=== PATIENT | male | born 1955 | race Caucasian/White ===

== ENCOUNTER 2019-06-22 16:39 | Inpatient (IN) ==
[2019-06-22] MEDS ORDERED: MORPHINE IV PRN ×2 (18:24→18:42)
[2019-06-22] MEDS ORDERED: VANCOMYCIN IV PER PHARMACY MISC SCH (18:30)
[2019-06-22] MEDS: 1/2 NS 1,000 ML IV SCH (18:48)
[2019-06-22] MEDS: ZOSYN 3.375 GM in NS 50 ML IV SCH (18:48)
[2019-06-22] MEDS ORDERED: D50W SYRINGE IV PRN (19:00)
[2019-06-22 19:21] LABS: BASO# 0.04 X1000 (0.0-0.2); BASO% 0.6 % (0.0-0.8); EOS# 0.09 X1000 (0.0-0.7); EOS% 1.3 % (0.0-10.0); HEMATOCRIT 43.9 % (42.0-52.0); HEMOGLOBIN 14.7 g/dL (14.0-18.0); IMM GRAN# 0.04 X1000 (0.0-0.04); IMM GRAN% 0.6 % (0.0-0.5); LYMPH# 1.99 X1000 (1.2-3.4); LYMPH% 28.7 % (20.5-51.1); MCHC 33.5 g/dL (33-37); MCV 86.6 FL (81-99); MONO# 0.61 X1000 (0.11-0.59); MONO% 8.8 % (1.7-9.3); NEUT# 4.17 X1000 (1.4-6.5); PLT 245 X1000 (130-400); RBC 5.07 XMIL (4.7-6.1); RDW 13.3 % (11.5-14.5); WBC 6.94 X1000 (4.8-10.8)
[2019-06-22 19:35] LABS: AGAP 15; BUN 19 mg/dL (8-22); CALCIUM 9.2 mg/dL (8.8-10.2); CHLORIDE 95 mmol/L (98-107); COSMO 279; CREATININE 0.9 mg/dL (0.7-1.2); ESTIMATED GFR > 60; GLUCOSE 279 mg/dL (70-104); POTASSIUM 4.7 mmol/L (3.5-5.1); SODIUM 133 mmol/L (136-145); TCO2 23 mmol/L (25-35)
[2019-06-22 19:36] LABS: HEMOGLOBIN A1C 10.8 % (4.8-6.0)
--- NOTE | 2019-06-22 19:53 | HISTORY AND PHYSICAL ---
CHIEF COMPLAINT: Right thumb swollen and pain. HISTORY OF PRESENT ILLNESS: He is a 63-year-old white male, type 2 diabetes. He had a splinter while lifting a cabinet 2 weeks ago. Apparently the patient removed the splinter after digging it out at the tip of the right thumb. Subsequently he was seen in the urgent care and sent home on antibiotics, and not getting better. He was seen in the emergency room yesterday and tried to open up. Under digital block they did incision over the tip of the right thumb. The patient was sent home on Percocet and Bactrim. The patient was given tetanus shot. He came to my office and he was not any better, and the whole right thumb was swollen, mostly at the tip at the distal phalanx area. It is completely pus-like, not able to touch. The patient is in a lot of pain. Basically admitted to the hospital with felon of right thumb. Surgical consult was obtained. I did review the x-rays that were done yesterday in the ER. X-ray of the right finger showed arthritis, no foreign body, no fracture. As a result, a hospital admission was warranted. I spoke to Dr. Taveras. He was started on antibiotics. PAST MEDICAL HISTORY: Type 2 diabetes, metabolic syndrome, hyperlipidemia, osteoarthritis, sleep apnea. PAST SURGICAL HISTORY: Right knee arthroplasty 05/2016. Lipoma excision, right abdomen. MEDICATIONS: Bactrim, Percocet, Lipitor 40 mg daily, metformin 500 p.o. b.i.d. ALLERGIES: Not known. 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 Living in [place]. No smoking. No drugs. No alcohol abuse. Tetanus was given 06/2018. Pneumococcal in 2013. Last physical exam 11/2018. FAMILY HISTORY: Father of lung cancer at 65. Mother is in good health. REVIEW OF SYSTEMS: HEENT: No headache, no vision problem. No earache. No sore throat. Neck: No goiter. No lymphadenopathy. No bruit. Cardiopulmonary: No chest pain, shortness of breath, PND or orthopnea. Gastrointestinal: No nausea, vomiting or abdominal pain. Genitourinary: No history of hesitancy or frequency. Right thumb is diffusely swollen, pus-like with pain. The redness is going towards the hand. No obvious neurological deficits. LABORATORY DATA: Investigations pending. ASSESSMENT AND PLAN: 1. A 63-year-old white male admitted to the hospital with right thumb felon after splinter. Plan of care: Tetanus is up to date. Intravenous Zosyn, vancomycin, morphine for pain, intravenous fluids. Check the labs. 2. Type 2 diabetes. Sliding scale with insulin coverage. 3. Surgical consult with Dr. Taveras. Follow up. cc: Anthony Preston MD
--- NOTE | 2019-06-22 20:18 | Diag Imaging Result Doc PS360 ---
EXAM: FINGER(S)-RIGHT INDICATION: surgery in am TECHNIQUE: 3 views COMPARISON: 06/21/2019 FINDINGS: Right thumb degenerative arthropathy is again noted. There is no discrete fracture, dislocation, or significant intrinsic osseous lesion, otherwise. There is persistent soft tissue edema around the tip of the thumb and there now appears to be a small laceration at the tip of the thumb at the palmar aspect. No embedded radiopaque foreign body is identified on this study. IMPRESSION: Stable soft tissue edema now with suggestion of soft tissue laceration at the palmar aspect of the thumb. Electronically signed by Charlie Peterson 06/22/2019 8:16 PM
--- NOTE | 2019-06-22 20:19 | Diag Imaging Result Doc PS360 ---
EXAM: CHEST-2 VIEWS INDICATION: surgery in am TECHNIQUE: 2 views COMPARISON: 08/03/2013 FINDINGS: The lungs are grossly clear. There is no discrete pleural fluid collection or pneumothorax. The cardiomediastinal silhouette and central vasculature are grossly unremarkable. IMPRESSION: No evidence of acute pathology by plain radiograph. Electronically signed by Charlie Peterson 06/22/2019 8:17 PM
[2019-06-22] MEDS ORDERED: VANCOMYCIN 2,000 MG in NS 500 ML IV ONE (21:00)
[2019-06-22] MEDS ORDERED: HUMULIN R SUBQ SCH (21:00)
[2019-06-22] MEDS: MORPHINE IV PRN (21:22)
[2019-06-22] MEDS: HUMULIN R SUBQ SCH (21:23)
[2019-06-23] MEDS: ZOSYN 3.375 GM in NS 50 ML IV SCH ×2 (01:00→06:31)
[2019-06-23] MEDS: MORPHINE IV PRN ×7 (03:23→21:49)
[2019-06-23 05:33] LABS: URINE SOURCE CLEAN CATCH
[2019-06-23 05:35] LABS: BILIRUBIN URINE NEGATIVE (NEGATIVE); BLOOD URINE NEGATIVE (NEGATIVE); COLOR YELLOW; GLUCOSE URINE 500 mg/dL (NEGATIVE); KETONE URINE NEGATIVE (NEGATIVE); LEUKOCYTES URINE NEGATIVE (NEGATIVE); NITRITE URINE NEGATIVE (NEGATIVE); PROTEIN URINE NEGATIVE (NEGATIVE); SP GRAVITY URINE 1.014; TURBIDITY URINE CLEAR (CLEAR); UROBILINOGEN URINE NORMAL (NORMAL)
[2019-06-23 05:36] LABS: UR EPITHELIAL CELLS <10 /HPF (<10); URINE BACTERIA NEGATIVE /HPF; URINE RBC <10 /HPF (<10); URINE WBC <10 /HPF (<10)
[2019-06-23] MEDS: 1/2 NS 1,000 ML IV SCH ×2 (06:29→07:51)
[2019-06-23] MEDS: HUMULIN R SUBQ SCH ×4 (06:30→21:53)
[2019-06-23] MEDS ORDERED: VERSED ONE (08:30)
[2019-06-23] MEDS ORDERED: XYLOCAINE-MPF 2% ONE (08:30)
[2019-06-23] MEDS ORDERED: HYDROGEN PEROXIDE SOLUTION ONE (08:30)
[2019-06-23] MEDS ORDERED: DIPRIVAN 1% ONE (08:31)
[2019-06-23] MEDS ORDERED: FENTANYL ONE (08:31)
[2019-06-23] MEDS: VANCOMYCIN 1,800 MG in NS 500 ML IV SCH ×2 (10:20→20:07)
[2019-06-23] MEDS ORDERED: ZOFRAN ONE (10:34)
[2019-06-23] MEDS ORDERED: DECADRON ONE (10:34)
[2019-06-23] MEDS: MORPHINE ONE ×3 (11:18→11:24)
--- NOTE | 2019-06-23 13:01 | OPERATIVE NOTE ---
PROCEDURE DATE: 06/23/2019 PREOPERATIVE DIAGNOSIS: Necrotic wound, right thumb, from self exploration with a pocket knife for a splinter. SECONDARY DIAGNOSIS: Diabetes mellitus. PROCEDURE: Debridement of right thumb. DETAILS OF PROCEDURE: The patient is brought to the operating room. After satisfactory induction of IV and endotracheal anesthesia, his right hand was prepped and draped in the appropriate manner. The necrotic wound on the palmar surface of his left thumb was sharply debrided with anaerobic and aerobic cultures being obtained. Necrotic skin and subcutaneous tissue was debrided. The wound was packed with Betadine-soaked gauze and sterile dressing was applied. He was subsequently awakened and extubated in the operating room and transferred to recovery. ESTIMATED BLOOD LOSS: About 10 mL. cc: MD Anthony Fam MD
[2019-06-23] MEDS: NORCO-10 PO PRN ×2 (14:01→20:07)
--- NOTE | 2019-06-23 14:26 | INFECTIOUS DISEASE CONSULT REP ---
DATE: 06/23/2019 CONCLUSION: The patient is status post debridement of a right thumb necrosis. The patient injured his hand when a splinter got into his thumb about 2 weeks ago. RECOMMENDATIONS: I agree with treating the patient with vancomycin. I have discontinued Zosyn and instead put the patient on cefepime. Some of the side effects of the antibiotics, including rash, diarrhea, and renal toxicity and ototoxicity have been explained to the patient who agrees with treatment. The patient asked me to order for him a stool softener and laxative. DISCUSSION: The patient tells me approximately 2 weeks ago he had a splinter in his thumb. It worsened and he was admitted to the hospital. The thumb developed necrotic areas. He underwent debridement today by Dr. Taveras. The cultures from surgery are pending. The patient's CBC shows a white count of 6,940, hemoglobin is 14.7, and platelet count is 245,000. Creatinine is 0.9. GFR is greater than 60. Urinalysis showed no white cells or bacteria. PAST MEDICAL HISTORY/REVIEW OF SYSTEMS: Eyes and ears: His vision and hearing are good. Neck: No stiffness. No pain. Respiratory: No shortness of breath or cough. Cardiac: No chest pain or palpitations. GI: No nausea, vomiting, or diarrhea. : No dysuria or flank pain. Bones, joints, muscles: The patient has had replacement of his right knee and he has had surgery on his cervical spine due to arthritis. Neurologic: No seizures. No loss of motor or sensory function. PREVIOUS HOSPITALIZATIONS AND OPERATIONS: He has had cervical spine surgery and a right total knee arthroplasty. MEDICAL DISEASES: Positive for diabetes mellitus and obesity. INFECTIOUS DISEASE HISTORY: Positive for pneumonia. Negative for UTI. FAMILY HISTORY: Positive for cancer, diabetes mellitus, and myocardial infarction. SOCIAL HISTORY: [place] He is . He lives with his family. He has dogs and horses for pets. ALLERGIES: His chart lists no known drug allergies. MEDICATIONS: The patient's medications at home include Augmentin, hydrocodone, and metformin. PHYSICAL EXAMINATION: Vital Signs: Temperature is 98 degrees, pulse 84, respirations 17, blood pressure is 129/72. Patient weighs 266 pounds. General: This is an obese, middle-aged male. He is in no acute distress. Head, eyes, ears, nose, throat: He can hear my spoken words and see near objects. I do not see any white coating on his tongue. Neck: No meningismus. Lungs: Clear to auscultation. Cardiovascular: Heart rate is regular. Abdomen: Soft and nontender. Neurologic: Patient is alert. He can move his extremities. He talks in a coherent fashion. Integument: No rash. Bones, joints, muscles: The patient has a dressing around the right thumb. The dressing is intact. Thank you for the consult. cc: MD Anthony Nunez MD
[2019-06-23] MEDS ORDERED: MILK OF MAGNESIA PO ONE (14:30)
[2019-06-23] MEDS: MAXIPIME 2 GM/NS 2 GM/100 ML IVPB IV SCH (14:51)
[2019-06-23] MEDS ORDERED: MIRALAX PO SCH (15:00)
[2019-06-23] MEDS ORDERED: SODIUM CHLORIDE 0.9% INJ SCH (19:15)
[2019-06-23] MEDS ORDERED: NEXIUM IV SCH (19:15)
[2019-06-23] MEDS: SODIUM CHLORIDE 0.9% INJ SCH (19:38)
[2019-06-23] MEDS: PROTONIX IV SCH (19:38)
[2019-06-23] MEDS: LOVENOX SUBQ SCH (19:38)
--- NOTE | 2019-06-23 19:42 | PROGRESS NOTE ---
DATE: 06/23/2019 SUBJECTIVE: I appreciated Dr. Taveras consult. He did a debridement of right thumb for felon. The cultures are pending. PHYSICAL EXAMINATION: Temperature is 98 degrees. Vitals are stable.HEENT: Within normal limits. Neck: Supple. Chest: Clear. Heart: Sounds are regular. Abdomen: Belly is soft and nontender. Good bowel sounds. Neurologic: No neurological deficits. INVESTIGATIONS: CBC: SMA 7 is normal. Glucose 300. ASSESSMENT AND PLAN: Right thumb felon status post debridement. Currently receiving IV fluids. I appreciated Dr. Cedeno consult. Continue on vancomycin and cefepime, insulin for sliding scale with coverage. The patient was on metformin. DVT and GI prophylaxis with Lovenox and Nexium respectively. Follow up. LEVEL OF DOCUMENTATION: 25 minutes. cc: Anthony Preston MD
[2019-06-23] MEDS: GLUCOPHAGE PO SCH (20:07)
[2019-06-24] MEDS: NORCO-10 PO PRN ×2 (01:02→06:07)
[2019-06-24] MEDS: MAXIPIME 2 GM/NS 2 GM/100 ML IVPB IV SCH ×2 (01:51→15:00)
[2019-06-24] MEDS: MORPHINE IV PRN ×6 (03:11→21:03)
[2019-06-24] MEDS: 1/2 NS 1,000 ML IV SCH ×2 (03:12→21:06)
[2019-06-24] MEDS: HUMULIN R SUBQ SCH ×4 (06:08→21:10)
[2019-06-24] MEDS: MIRALAX PO SCH ×2 (06:08→09:33)
[2019-06-24] MEDS ORDERED: CITRATE OF MAGNESIA PO ONE (09:24)
[2019-06-24] MEDS: GLUCOPHAGE PO SCH ×2 (09:33→21:03)
[2019-06-24] MEDS: VANCOMYCIN 1,800 MG in NS 500 ML IV SCH (09:33)
[2019-06-24] MEDS ORDERED: MORPHINE ONE (12:25)
--- NOTE | 2019-06-24 12:51 | PROGRESS NOTE ---
DATE: 06/24/2019 Mr. Selby, who is a 63-year-old white gentleman, has right thumb felon. He was operated by Dr. Taveras. His blood sugar was 368. This is status post debridement. He is feeling better. However, he is constantly asking for morphine as well as Sch[place]z, which I had told him that he can have 1 of the 2 in order to find out about the intensity of pain and he decided to take the morphine. We will discontinue the Sch[place]z for the present time. X-ray revealed soft tissue edema in the thumb. He is on IV vancomycin as well as cefepime. He is being seen by Dr. Cedeno as well as Dr. Taveras. The Gram stain was negative. Overall condition is stable. -9 cc: MD Anthony Chowdary MD
[2019-06-24] MEDS: PROTONIX IV SCH (21:03)
[2019-06-24] MEDS: VANCOMYCIN 1,800 MG in NS 250 ML IV SCH (22:22)
[2019-06-25] MEDS: MORPHINE IV PRN ×4 (03:01→12:05)
[2019-06-25] MEDS: MAXIPIME 2 GM/NS 2 GM/100 ML IVPB IV SCH (03:02)
[2019-06-25] MEDS: LOVENOX SUBQ SCH (03:03)
[2019-06-25] MEDS: 1/2 NS 1,000 ML IV SCH ×5 (03:16→18:23)
[2019-06-25] MEDS: SODIUM CHLORIDE 0.9% INJ SCH (04:30)
[2019-06-25] MEDS: HUMULIN R SUBQ SCH ×4 (06:22→22:59)
--- NOTE | 2019-06-25 07:49 | INFECTIOUS DISEASE PROGRESS NO ---
DATE: 06/25/2019 PRESENT ILLNESS: The patient is status post debridement of a methicillin- resistant Staphylococcus aureus right thumb necrosis and cellulitis. MEDICATIONS: The patient is on vancomycin and cefepime. PHYSICAL EXAMINATION: Vital Signs: Temperature is 98.4 degrees, pulse 67, respirations 18, blood pressure is 168/83. General: This is an obese, middle-aged male. He is complaining of pain in his right thumb. Head, Eyes, Ears, Nose, and Throat: He can hear my spoken words and see near objects. There was no white coating to the patient's tongue. Neck: No pain moving it. Lungs: Clear to auscultation. Cardiovascular: Heart rate is regular. Abdomen: Soft and nontender. Extremities: The patient's right thumb has a large dressing around it. The dressing is intact. Neurologic: The patient is alert. He can move his extremities. There is no tremor. LAB AND X-RAY: The patient's thumb culture is growing methicillin-resistant Staphylococcus aureus. There are no other laboratory results or radiology results for today. ASSESSMENT AND PLAN: The patient has a methicillin-resistant Staphylococcus aureus right thumb necrosis and cellulitis. I plan on continuing vancomycin but discontinuing cefepime. I have also, for today, ordered a CBC and a creatinine. COMORBIDITIES: The patient is a diabetic and he is obese. cc: MD Anthony Nunez MD [facility]
[2019-06-25 08:20] LABS: BASO# 0.04 X1000 (0.0-0.2); BASO% 0.5 % (0.0-0.8); EOS# 0.12 X1000 (0.0-0.7); EOS% 1.6 % (0.0-10.0); HEMATOCRIT 41.7 % (42.0-52.0); HEMOGLOBIN 13.7 g/dL (14.0-18.0); IMM GRAN# 0.03 X1000 (0.0-0.04); IMM GRAN% 0.4 % (0.0-0.5); LYMPH# 2.28 X1000 (1.2-3.4); LYMPH% 29.9 % (20.5-51.1); MCH 29.1 PG (27-31); MCHC 32.9 g/dL (33-37); MCV 88.5 FL (81-99); MONO# 0.62 X1000 (0.11-0.59); MONO% 8.1 % (1.7-9.3); MPV 9.8 FL (7.4-10.4); NEUT# 4.54 X1000 (1.4-6.5); NEUT% 59.5 % (42.2-75.2); PLT 267 X1000 (130-400); RBC 4.71 XMIL (4.7-6.1); RDW 13.1 % (11.5-14.5); WBC 7.63 X1000 (4.8-10.8)
[2019-06-25] MEDS: VANCOMYCIN 1,800 MG in NS 250 ML IV SCH ×2 (09:21→22:57)
[2019-06-25] MEDS: MIRALAX PO SCH (09:21)
[2019-06-25] MEDS: GLUCOPHAGE PO SCH ×2 (09:21→22:58)
--- NOTE | 2019-06-25 12:56 | PROGRESS NOTE ---
DATE: 06/25/2019 Mr. Selby is doing fairly well. He is going to have more surgery tomorrow. The wound culture grew Staph aureus. Dr. Cedeno has seen him, and he has stopped the cefepime. He wants to continue the IV vancomycin. Mr. Selby does not want the morphine continued. He wants [place] 10. We will give it every 4 hours p.o. -8 cc: MD Anthony Chowdary MD
[2019-06-25] MEDS: NORCO-10 PO PRN ×3 (14:26→22:58)
[2019-06-25] MEDS: PROTONIX IV SCH (22:58)
[2019-06-26] MEDS: SODIUM CHLORIDE 0.9% INJ SCH ×2 (01:22→21:17)
[2019-06-26] MEDS: NORCO-10 PO PRN ×5 (03:53→22:16)
[2019-06-26] MEDS: HUMULIN R SUBQ SCH ×4 (06:05→21:17)
[2019-06-26] MEDS ORDERED: MARCAINE 0.25% PF ONE (06:24)
--- NOTE | 2019-06-26 06:25 | INFECTIOUS DISEASE PROGRESS NO ---
DATE: 06/26/2019 PRESENT ILLNESS: The patient is status post debridement of a methicillin-resistant Staph aureus right thumb necrosis and cellulitis. MEDICATIONS: The patient has been on vancomycin for 6 days, and yesterday I discontinued cefepime. PHYSICAL EXAMINATION: Vital Signs: Temperature 97.8 degrees, pulse 71, respirations 18, and blood pressure 176/98. General: This is an obese middle-aged male. He is in no acute distress. It appears that his pain in his thumb is being handled with medication. Head/eyes/ears/nose/throat: He can hear my spoken words and see near objects. I did not see any white coating on his tongue. Neck: No pain with moving it. Lungs: Clear to auscultation. Cardiovascular: Heart rate is regular. Abdomen: Soft and nontender. Extremities: The patient has a large dressing around the right thumb. The dressing is intact. Neurologic: The patient is alert. He can move his extremities. He ambulates without difficulty. There is no tremor. LABORATORY AND X-RAY: There is no new radiographic study. CBC shows a white count of 7630, hemoglobin 13.7, and platelet count 267,000. Creatinine is 0.8. ASSESSMENT AND PLAN: Patient has a methicillin-resistant Staph aureus right thumb necrosis and cellulitis. I plan on continuing vancomycin. The patient is scheduled today to have more surgery on his thumb to be performed by Dr. Taveras. COMORBIDITIES: The patient is diabetic and obese. cc: MD Anthony Nunez MD
[2019-06-26] MEDS ORDERED: DIPRIVAN 1% ONE (06:41)
[2019-06-26] MEDS ORDERED: XYLOCAINE-MPF 2% ONE (06:42)
[2019-06-26] MEDS ORDERED: VERSED ONE (06:44)
[2019-06-26] MEDS: DILAUDID ONE ×2 (07:40→07:45)
--- NOTE | 2019-06-26 07:49 | OPERATIVE NOTE ---
PROCEDURE DATE: 06/26/2019 PREOPERATIVE DIAGNOSIS: Methicillin-resistant Staphylococcus aureus infection of left thumb, volar surface. PROCEDURE PERFORMED: Debridement. DESCRIPTION OF PROCEDURE: The patient was brought to the operating room. After satisfactory induction of IV and LMA anesthesia, his dressing was removed. There appeared to be minimal further necrosis from the MRSA infection that he had. The small amount of necrotic material in the central portion of the wound was excised with sharp dissection. The wound was scrubbed with a Betadine-soaked brush. A sterile dressing was applied with Betadine-soaked gauze. A small amount of hemostasis was performed with electrocautery. A sterile dressing was subsequently applied. He was awakened and extubated in the operating room, and transferred to recovery. Estimated blood loss was less than 10 mL. cc: MD Anthony Fam MD
[2019-06-26] MEDS ORDERED: NORCO-10 ONE (07:54)
[2019-06-26] MEDS: VANCOMYCIN 1,800 MG in NS 250 ML IV SCH ×2 (09:32→23:05)
[2019-06-26] MEDS: GLUCOPHAGE PO SCH ×2 (09:32→21:17)
[2019-06-26] MEDS: MIRALAX PO SCH (09:33)
[2019-06-26] MEDS: 1/2 NS 1,000 ML IV SCH ×3 (10:30→22:17)
[2019-06-26] MEDS: PROTONIX IV SCH (21:16)
[2019-06-26] MEDS: LOVENOX SUBQ SCH (23:05)
[2019-06-27] MEDS: NORCO-10 PO PRN ×5 (02:16→21:33)
--- NOTE | 2019-06-27 03:24 | PROGRESS NOTE ---
DATE: 06/26/2019 SUBJECTIVE: Cultures grew MRSA on the right infected thumb. Dr. Taveras is going to do the operating room again today. I appreciate Dr. Taveras and Dr. Raymundo Cedeno. REVIEW OF SYSTEMS: None reported. PHYSICAL EXAMINATION: Vital Signs: Temperature is 98.1 degrees, pulse 74, and blood pressure is 156/83. HEENT: Within normal limits. Neck: Supple. Chest: Clear to auscultation. Heart: Sounds are regular. Belly is soft and nontender. Good bowel sounds. INVESTIGATIONS: Blood sugar is better. ASSESSMENT AND PLAN: Metabolic syndrome, type 2 diabetes, right infected thumb with felon due to splinters from MRSA, status post debridement x2. Currently, receiving IV vancomycin and microbiology cultures sensitive to Bactrim. Will be discharged as soon as Dr. Taveras is ready for him to be discharged. We will follow up, and continue on DVT and GI prophylaxis with Protonix and Lovenox. TIME SPENT: Level of documentation 25 minutes. cc: Anthony Preston MD
[2019-06-27] MEDS: HUMULIN R SUBQ SCH ×4 (06:14→20:46)
--- NOTE | 2019-06-27 08:12 | ORTHOPAEDICS CONSULTATION ---
DATE: 06/26/2019 REFERRING PHYSICIAN: Consult from Dr. Taveras with general surgery. REASON FOR CONSULTATION: Evaluation of right thumb wound. PAST MEDICAL HISTORY: 1. Type 2 diabetes. 2. Metabolic syndrome. 3. Hyperlipidemia. 4. Osteoarthritis. 5. Obstructive sleep apnea. PAST SURGICAL HISTORY: 1. Right total knee arthroplasty in 2016. 2. Lipoma excision from his abdomen. 3. Debridement and irrigation of his right thumb wound x2 with Dr. Taveras this week. MEDICATIONS: 1. Metformin. 2. Bactrim. 3. Percocet. 4. Lipitor. ALLERGIES: No known drug allergies. SOCIAL HISTORY: The patient lives in [place]. 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 He has denies any tobacco, alcohol, or drug use. He is right-hand dominant. FAMILY HISTORY: Noncontributory. REVIEW OF SYSTEMS: Ten point review of systems negative other than what is listed in the history of present illness. CHIEF COMPLAINT: Right thumb pain. HISTORY OF PRESENT ILLNESS: Mr. Selby is a 63-year-old gentleman who presented to [facility] on 06/22/2019 with a wound of the right thumb. Patient states he was using a pocket knife to try to pick a wood splinter out of his thumb. He states his knife had some wood varnish on it and he thinks this is what caused the infection. Over the next couple of days, he had significant swelling and pain on the thumb and thus presented to the ER. The patient is right- hand dominant. When he presented to the ER, he states he was febrile. PHYSICAL EXAMINATION: General: Mr. Selby is a 63-year-old, male. Appears well nourished, well developed, in no acute distress. He is awake, alert, and oriented x3. He is very polite and cooperative during the examination. Vital Signs: Temperature 97.9 degrees Fahrenheit, heart rate 73, respiratory rate 20, blood pressure 143/74. HEENT: Normocephalic and atraumatic. Respiratory: Nonlabored breathing. Cardiovascular: Regular rate and rhythm. Extremities: Examination of right thumb reveals a wound with eschar intact over the volar surface of the thumb. The wound measures about 2 cm x 1 cm. There is no exposed bone at the base of the wound. It does extend deep to the dermis into the pulp of the fingertip. There is some bleeding in the wound bed. There is no active purulence or drainage. He reports 1/2 sensation at the distal tip of his thumb, 2/2 sensation elsewhere in his thumb. FPL and EPL tendons are intact. His nail plate is intact with no signs of infection. He has significant Heberden's nodules in both of his hands, most appreciated on his right second finger. Motor is otherwise intact, AIN, PIN, ulnar nerve distribution. Sensation intact to light touch to median, radial, ulnar, axillary nerves. Radial pulse palpable and equal bilaterally. LABS: Surgical wound cultures grew MRSA. White count 7.6, hemoglobin 14, hematocrit 42, platelets 267,000. Imaging obtained on 06/22/2019 was reviewed, demonstrating no signs of fracture or dislocation. He has some arthritis in his thumb IP joint. No apparent osteomyelitis or osteolysis of the distal phalanx. No bony involvement. ASSESSMENT: A 63-year-old male with right thumb infection, status post debridement and irrigation twice with Dr. Taveras. PLAN: A long discussion was had with patient regarding diagnosis and treatment options. He currently has an eschar over the bed of his wound. He has no obvious exposed bone. He is receiving vancomycin for MRSA positive cultures. He has no signs of active drainage. I think, given the current status of the wound bed and his history of diabetes, trying to proceed with closure by secondary intention would be a good option. This way also helps preserve sensation as the tissue heals. If he develops exposed bone in his wound bed, I think this would be a reason to proceed with more aggressive intervention including some type of soft tissue flap or full- thickness skin graft. However, currently, he does not appear to have any bone exposed in the wound. I would recommend proceeding with antibiotics per infectious disease recommendations. He can do twice daily dressing changes with either wet-to-dry dressings or Xeroform dressings. Chlorhexidine or Betadine soaks twice daily and close followup. If he develops any increased purulence of the wound or exposure of bone in deep tissue, then additional surgical intervention may be necessary for wound coverage. Thank you for the consultation. Please call with any questions. cc: Anthony Preston MD
[2019-06-27] MEDS: GLUCOPHAGE PO SCH ×2 (08:56→20:45)
[2019-06-27] MEDS: MIRALAX PO SCH (08:58)
[2019-06-27] MEDS: VANCOMYCIN 1,800 MG in NS 250 ML IV SCH ×2 (08:58→20:45)
[2019-06-27] MEDS: 1/2 NS 1,000 ML IV SCH ×2 (08:59→15:23)
[2019-06-27] MEDS: DILAUDID IV PRN ×4 (10:16→23:09)
[2019-06-27] MEDS: DOXYCYCLINE PO SCH ×2 (11:46→20:45)
[2019-06-27] MEDS: PROTONIX IV SCH (20:44)
[2019-06-27] MEDS: LOVENOX SUBQ SCH (20:45)
[2019-06-27] MEDS: SODIUM CHLORIDE 0.9% INJ SCH (20:45)
--- NOTE | 2019-06-27 22:56 | PROGRESS NOTE ---
DATE: 06/27/2019 SUBJECTIVE: The patient is having a lot of pain. I appreciated Dr. Taveras' input as well as Dr. Niraj Green's orthopedic consultation. There is no significant bone involvement. The patient was debrided a second time. I have seen the pictures. The plan is to do some skin graft. He had MRSA isolated. The pain is not adequately control with the [place]. OBJECTIVE: On exam, afebrile. Vital signs are stable. HEENT exam within normal limits. Neck is supple. Chest is clear. Heart sounds are regular. Belly is soft, nontender. No obvious deficits. ASSESSMENT AND PLAN: 1. Right thumb felon with methicillin-resistant Staphylococcus aureus. We will use Dilaudid along with [place] for pain. 2. Diabetes, on Glucophage and sliding scale with insulin coverage. 3. Constipation. MiraLAX was given. 4. Deep venous thrombosis and gastrointestinal prophylaxis as per order sheet. 5. Dr. Cedeno started on doxycycline 100 p.o. b.i.d. 6. Based on Dr. Taveras, further workup and disposition will be arranged. Appreciated all the consultants. Level of documentation 25 minutes. cc: Anthony Preston MD
[2019-06-28] MEDS: NORCO-10 PO PRN ×2 (01:52→08:10)
[2019-06-28] MEDS: DILAUDID IV PRN (04:43)
[2019-06-28] MEDS: 1/2 NS 1,000 ML IV SCH (04:44)
[2019-06-28] MEDS: HUMULIN R SUBQ SCH (06:15)
[2019-06-28] MEDS: MIRALAX PO SCH (08:49)
[2019-06-28] MEDS: GLUCOPHAGE PO SCH (08:49)
[2019-06-28] MEDS: DOXYCYCLINE PO SCH (08:49)
[2019-06-28 08:52] VITALS: BP 140/86
--- NOTE | 2019-06-29 20:31 | DISCHARGE SUMMARY ---
ADMISSION DATE: 06/22/2019 DISCHARGE DATE: 06/28/2019 DISCHARGING DIAGNOSIS: Infected right thumb with Methicillin resistant Staphylococcus aureus, with felon. SECONDARY DIAGNOSES: 1. Type 2 diabetes. 2. Metabolic syndrome. 3. Hyperlipidemia. 4. Osteoarthritis. 5. Sleep apnea. CONSULTS: 1. Dr. Taveras. 2. Dr. Raymundo Cedeno. 3. Orthopedics consult, Niraj Green MD. PROCEDURES: Debridement of distal right thumb. BRIEF HISTORY: Please see the H and P that was done on 06/22/2019. In brief, he is a 63-year-old white male with a known history of type 2 diabetes, infected right thumb after he got struck with 2 splinters from the cabinet. Patient was trying to dig out and got infected. X-rays showed no foreign body noted except osteoarthritis at DIP joint. He was seen in the emergency room prior to drain out and sent home on Augmentin. He failed to improve with excruciating pain, unable to touch the thumb, and the redness was spreading proximally. The patient was admitted for debridement as well as aggressive IV antibiotics. HOSPITAL COURSE: Patient was given IV pain medicine, IV vancomycin and Zosyn. Dr. Taveras did 2 stage procedure of debridement. At this time, he does not need any skin graft. There is no evidence of bone infection as per the orthopedic surgeon. Urine cultures grew MRSA. It is been sensitive to Bactrim and doxycycline. LABS AT THE TIME OF DISCHARGE: CBC: White cell count 6.9, hematocrit 43, platelets 245,000. SMA7 is normal. DISCHARGING INSTRUCTIONS: 1. Tdap was given, 06/21/2019. 2. Metformin 500 p.o. b.i.d. 3. Doxycycline 100 p.o. b.i.d. 4. Traphill as needed for pain. 5. Follow up in my office next week as well as Dr. Dilip Taveras. cc: MD Dilip Contreras MD Leroy F. Harris, MD Justin Hallock, MD
== END 2019-06-28 09:55 | disposition home or self-care (01) | DRG 581 ==
LOC: DIRADM 16:39 → 1N 17:04
PROVIDERS: ADMIT Internal Medicine; ATTEND Internal Medicine